=== PATIENT | female | born 1960 | race Caucasian/White ===

== ENCOUNTER 2017-06-09 14:22 | Emergency (ER) | payer OTHER ==
[~2017-06-09] VITALS: Ht 160 cm; Wt 85.0 kg
[~2017-06-09 14:22] MED LIST: MOTRIN600 M1 PO
[2017-06-09] MEDS ORDERED: ULTRAM50 MG PO (15:15)
[2017-06-09 15:42] VITALS: BP 118/80
== END 2017-06-09 15:43 | disposition home or self-care (01) ==
LOC: EME 14:22
PROC: 2W3DX1Z Immobilization of Left Lower Arm using Splint (ICD-10-PCS; principal; 2017-06-09)
DX: S52.502A Unspecified fracture of the lower end of left radius, initial encounter for closed fracture (principal); W18.30XA Fall on same level, unspecified, initial encounter; Y93.89 Activity, other specified; M19.90 Unspecified osteoarthritis, unspecified site
CPT/HCPCS: 73110; 99281; 99284